=== PATIENT | female | born 1970 ===

== ENCOUNTER 2019-02-14 14:42 | Outpatient (CLI) | payer OTHER | END 2019-02-14 15:00 | disposition home or self-care (01) | LOC: OFIC 805 14:42 | DX: R49.0 Dysphonia (principal); G47.33 Obstructive sleep apnea (adult) (pediatric); J04.0 Acute laryngitis ==

== ENCOUNTER 2020-05-04 10:00 | Inpatient (IN) | payer OTHER ==
[~2020-05-04] VITALS: Ht 167.6 cm; Wt 113.4 kg
[2020-05-04] MEDS ORDERED: SYNTHROID100 MCG (14:10)
[2020-05-04] MEDS ORDERED: SYNTHROID100 MCG PO (14:12)
== END 2020-05-10 12:18 | disposition home or self-care (01) | DRG 743 ==
LOC: O/R 05-06 07:00 → SURG 05-08 17:09
PROVIDERS: ADMIT Obstetrics & Gynecology; ATTEND Obstetrics & Gynecology
PROC: 0UB70ZZ Excision of Bilateral Fallopian Tubes, Open Approach (ICD-10-PCS; 2020-05-08)
PROC: 0UT90ZL Resection of Uterus, Supracervical, Open Approach (ICD-10-PCS; principal; 2020-05-08 10:15)
PROC: 0UB20ZZ Excision of Bilateral Ovaries, Open Approach (ICD-10-PCS; 2020-05-08 10:15)
DX: D25.1 Intramural leiomyoma of uterus (principal); D25.2 Subserosal leiomyoma of uterus; G47.33 Obstructive sleep apnea (adult) (pediatric); E03.9 Hypothyroidism, unspecified; N83.02 Follicular cyst of left ovary

== ENCOUNTER → 2021-08-27 | Outpatient (CLI) | payer OTHER ==
[~2021-08-27] MED LIST: SYNTHROID100 MCG; SYNTHROID100 MCG PO
== END | disposition home or self-care (01) ==
LOC: PPH VACUNA 08:00
PROVIDERS: ATTEND Emergency Medicine Pediatric Emergency Medicine
DX: Z23 Encounter for immunization (principal)

== ENCOUNTER 2022-02-25 08:00 | Outpatient (CLI) | payer OTHER | END 2022-02-25 08:30 | disposition home or self-care (01) | LOC: PPH VACUNA 08:00 | PROVIDERS: ATTEND Emergency Medicine Pediatric Emergency Medicine | DX: Z23 Encounter for immunization (principal) ==